=== PATIENT | female | born 2005 | race Caucasian/White ===

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

== ENCOUNTER 2024-03-11 15:48 | Emergency (ER) | payer BC, SELFPAY ==
[2024-03-11 15:55] VITALS: BP 125/79; PULSE 103; RESP 18; TEMP 37.7; O2SAT 100
[2024-03-11 16:13] LABS: EDUAAPPEAR Cloudy; EDUABILI Negative; EDUABLOOD 2+; EDUACOLOR1 Yellow; EDUAGLUCOSE Negative; EDUAKETONE Negative; EDUALEUKO 2+; EDUANITRATE Negative; EDUAPROTEIN 1+; EDUASPGRAVITY 1.025
--- NOTE | 2024-03-11 16:15 | ED.ABDPAIN ---
HPI - Abdominal Pain General Chief Complaint: Urogenital-Female Stated Complaint: UTI/Blood In Urine Time Seen by Provider: 03/11/24 16:16 Source: patient, RN notes reviewed and old records reviewed Mode of arrival: ambulatory Limitations: no limitations History of Present Illness HPI narrative: Patient presents with complaints of urinary frequency and burning. She reports this has been going on for 2 days, worsening. Reports hematuria today. She also complains of some left flank pain. She denies any fever, chills, sweats. Temp is slightly elevated on arrival. She has not been taking anything for her symptoms. She has had pyelonephritis in the past, states this does not feel as bad. She voices no other concerns or complaints at this time. Related Data Allergies Allergy/AdvReac Type Severity Reaction Status Date / Time honey Allergy Intermediate Hives / Verified 03/11/24 15:50 Red Face Review of Systems Review of Systems: All systems reviewed & are unremarkable except as noted in HPI and below Constitutional: Constitutional: Reports no additional constitutional complaints ENT: Reports system reviewed and no additional complaints, except as documented Cardiovascular: Cardiovascular: Reports no additional cardiovascular complaints Respiratory: Respiratory: Reports no additional respiratory complaints Gastrointestinal: Gastrointestinal: Reports no additional gastrointestinal complaints Genitourinary: Genitourinary: Reports dysuria, Reports flank pain (left), Reports urinary hesitancy and Reports urinary urgency [facility] Social History Social History Gender identity (if verbalized by the patient): Female Comments At the time of my signature, I reviewed and agree with the nursing past medical, surgical, social, and family history. There is no relevant family history pertinent to the patient complaint. Exam Const: General: cooperative, no acute distress, alert and awake Orientation/consciousness: oriented to person, oriented to place and oriented to time HENMT: Head: normal to inspection Resp: Effort & Inspection: normal respiratory effort and able to speak in complete sentences Auscultation: clear to auscultation bilaterally, no crackles, no rales, no rhonchi and no wheezes Cardio: Palpation: normal PMI Rate: regular rate Rhythm: regular rhythm Heart sounds: S1 normal heart sound present and S2 normal heart sound present : General: Yes bladder normal to palpation and Yes no CVA tenderness Neuro: General: oriented to person, oriented to place and oriented to time Cranial nerves: Yes CN's II-XII intact bilaterally Psych: Appearance: grossly normal Thought process: Normal thought process present Insight: Good insight present (Psych) Judgement: Good judgement present (Psych) Course Course Level of Care: Express Care Visit Vital Signs Vital signs: Vital Signs Temperature 99.9 F H 03/11/24 15:55 Pulse Rate 103 H 03/11/24 15:55 Respiratory Rate 18 03/11/24 15:55 Blood Pressure 125/79 03/11/24 15:55 Pulse Oximetry 100 03/11/24 15:55 Oxygen Delivery Room Air 03/11/24 15:55 Temperature 99.9 F H 03/11/24 15:55 Pulse Rate 103 H 03/11/24 15:55 Respiratory Rate 18 03/11/24 15:55 Blood Pressure 125/79 03/11/24 15:55 Pulse Oximetry 100 03/11/24 15:55 Oxygen Delivery Room Air 03/11/24 15:55 Reviewed MDM - Abdominal Pain MDM Narrative Medical decision making narrative: Patient nontoxic appearing, reassuringly normal exam. No CVA tenderness, no bladder tenderness. Discharge home with p.o. antibiotics, strict emergency department precautions. Follow with primary care provider. Medications as prescribed. Discharge instructions reviewed with patient, as well as provided in writing per nursing staff. The instructions also include specific and strict return/GO TO THE ER as well as f/u information. All rivkaio
== END 2024-03-11 16:30 | disposition home or self-care (01) ==
PROVIDERS: Emergency Provider Nurse Practitioner Family; PCP Pediatrics
DX: N30.00 Acute cystitis without hematuria (principal); B96.20 Unspecified Escherichia coli [E. coli] as the cause of diseases classified elsewhere
CPT/HCPCS: 81003; 87077; 87086; 87088; 87186; 99213; G0463

== ENCOUNTER 2024-06-17 08:11 | Emergency (ER) | payer BC, SELFPAY ==
[2024-06-17 08:22] VITALS: BP 117/78; PULSE 95; RESP 17; TEMP 37.7; O2SAT 99
--- NOTE | 2024-06-17 08:32 | ED.URI ---
HPI - URI/Sore Throat General Chief Complaint: Upper Respiratory Infection Stated Complaint: Headache/Bodyaches Time Seen by Provider: 06/17/24 08:32 Source: patient, RN notes reviewed and old records reviewed Mode of arrival: ambulatory Limitations: no limitations History of Present Illness HPI Narrative: Patient presents with complaints of headache, body aches, cough. She reports that headache was 1st symptom, began 1 week ago. She has been taking Tylenol and ibuprofen with no relief. She states that about 3 days ago body aches and sweats began. She reports occasional cough, states that this hurts her ribs and her head. She denies all injury and trauma. She denies any shortness of breath. She has not been running a fever, but has had antipyretic medications on board constantly for the past week. Says that last night she was awake all night due to coughing and body aches. Related Data Allergies Allergy/AdvReac Type Severity Reaction Status Date / Time honey Allergy Intermediate Hives / Verified 03/11/24 15:50 Red Face Review of Systems Review of Systems: All systems reviewed & are unremarkable except as noted in HPI and below Constitutional: Constitutional: Reports as per HPI, Reports no additional constitutional complaints, Reports body ache(s), Reports headache(s) and Reports night sweats ENT: Reports system reviewed and no additional complaints, except as documented Cardiovascular: Cardiovascular: Reports no additional cardiovascular complaints Respiratory: Respiratory: Reports no additional respiratory complaints and Reports pain with cough Gastrointestinal: Gastrointestinal: Reports no additional gastrointestinal complaints PMFSH Social History Social History Gender identity (if verbalized by the patient): Female Comments At the time of my signature, I reviewed and agree with the nursing past medical, surgical, social, and family history. There is no relevant family history pertinent to the patient complaint. Exam Const: General: cooperative, no acute distress, alert and awake Orientation/consciousness: oriented to person, oriented to place and oriented to time HENMT: Head: normal to inspection Ears: TM's normal bilaterally Mouth: Yes moist mucous membranes Throat: abnormal tonsil bilateral erythema and hypertrophy 2+ Resp: Effort & Inspection: normal respiratory effort and able to speak in complete sentences Auscultation: clear to auscultation bilaterally, no crackles, no rales, no rhonchi and no wheezes Cardio: Palpation: normal PMI Rate: regular rate Rhythm: regular rhythm Heart sounds: S1 normal heart sound present and S2 normal heart sound present Neuro: General: oriented to person, oriented to place and oriented to time Cranial nerves: Yes CN's II-XII intact bilaterally Psych: Appearance: grossly normal Thought process: Normal thought process present Insight: Good insight present (Psych) Judgement: Good judgement present (Psych) Course Course Level of Care: Express Care Visit Vital Signs Vital signs: Vital Signs Temperature 99.8 F H 06/17/24 08:22 Pulse Rate 95 06/17/24 08:22 Respiratory Rate 17 06/17/24 08:22 Blood Pressure 117/78 06/17/24 08:22 Pulse Oximetry 99 06/17/24 08:22 Oxygen Delivery Room Air 06/17/24 08:22 Temperature 99.8 F H 06/17/24 08:22 Pulse Rate 95 06/17/24 08:22 Respiratory Rate 17 06/17/24 08:22 Blood Pressure 117/78 06/17/24 08:22 Pulse Oximetry 99 06/17/24 08:22 Oxygen Delivery Room Air 06/17/24 08:22 Reviewed MDM - URI/Sore Throat MDM Narrative Medical decision making narrative: Patient with multiple constitutional complaints and a cough. Negative rapid strep. No x-ray capability at this facility today, but symptoms are consistent with community-acquired pneumonia. Will treat with azithromycin given severity and duration of symptoms and taking into account what is going on in the community. Patient is nontoxic appearing and stable for discharge home. Discharge instructions reviewed with patient, as well as provided in writing per nursing staff. The instructions also include specific and strict return/GO TO THE ER as well as f/u information. All questions have been answered, and the patient deny any further questions with discharge and discharge plan. Some parts of this dictation were generated by voice recognition software and may contain typographical and/or grammatical inaccuracies. Differential Diagnosis Differential diagnosis: Likely upper respiratory infection, otitis media, sinusitis and pharyngitis Lab Data Attestation: I reviewed the patient's lab results. Discharge Plan Discharge Clinical Impression: Pneumonia Qualifiers: Pneumonia type: due to unspecified organism Laterality: unspecified laterality Lung location: unspecified part of lung Qualified Code(s): J18.9 - Pneumonia, unspecified organism Patient Disposition: Home, Self-Care Condition: Stable Instructions: Antibiotic Form, Community Acquired Pneumonia (ED) Additional Instructions: Take medications as prescribed, follow with primary care provider. Emergency department for new or worse symptoms Patient Language: Lithuanian Prescriptions: New azithromycin 250 mg tablet See Rx Instructions .ROUTE .COMPLEX Qty: 6 0RF Rx Instructions: For 250 mg dose pack: take 500 mg today (day 1), then 250 mg for 4 days (days 2-5) albuterol sulfate [Ventolin HFA] 90 mcg/actuation HFA aerosol inhaler 2 puff inhalation QID PRN (Reason: shortness of breath or wheezing) Qty: 8.5 0RF Follow-up/Referrals: Darrel Johnson MD [Primary Care Provider] - 2 Weeks Stand Alone Forms: Work/School Release IP Time of Disposition: 08:53
[2024-06-17 08:50] LABS: EDSTREPNEGPOS1 Negative (Negative)
== END 2024-06-17 08:58 | disposition home or self-care (01) ==
PROVIDERS: Emergency Provider Nurse Practitioner Family; PCP Pediatrics
DX: J18.9 Pneumonia, unspecified organism (principal)
CPT/HCPCS: 87081; 87880; 99213; G0463

== ENCOUNTER 2024-10-10 16:40 | Emergency (ER) | payer BC, SELFPAY ==
[2024-10-10 16:48] VITALS: BP 129/75; PULSE 95; RESP 16; TEMP 37.3; O2SAT 100
--- NOTE | 2024-10-10 17:10 | ED.BACK ---
HPI - Back Pain/Injury General Chief Complaint: Back Pain/Injury Stated Complaint: Upper Back Pain Time Seen by Provider: 10/10/24 17:11 Source: patient Mode of arrival: ambulatory Limitations: no limitations History of Present Illness HPI Narrative: 19-year-old female presents with complaint of mid back pain for 2-3 days. Denies injury. Reports pain worse when hunching over, walking. If she sits straight up back feels fine. Taking ibuprofen to treat pain. No radiation of pain to upper or lower extremities. Ambulatory with steady gait. All systems reviewed and negative except as noted above. Related Data Allergies Allergy/AdvReac Type Severity Reaction Status Date / Time honey Allergy Intermediate Hives / Verified 10/10/24 16:45 Red Face Review of Systems Review of Systems: CONSTITUTIONAL: Denies fever, chills, or sweats. EYES: Denies visual changes, redness, or discharge. ENT: Denies rhinorrhea, congestion, sore throat, or otalgia. CARDIOVASCULAR: Denies chest pain, palpitations, or edema. RESPIRATORY: Denies cough or dyspnea. GASTROINTESTINAL: Denies abdominal pain, nausea, vomiting, or diarrhea. GENITOURINARY: Denies dysuria or hematuria. SKIN: Denies rash or itching. MUSCULOSKELETAL: Reports mid back pain. Denies joint pain, or myalgia. NEUROLOGIC: Denies headache, numbness, or weakness. PSYCHIATRIC: Denies anxiety or depression. All other systems reviewed are negative, except as documented in HPI. PMFSH Social History Social History Gender identity (if verbalized by the patient): Female Comments At time of signature, agree with nursing past medical, surgical, social and family history. There is no relevant family history pertinent to the presenting complaint. Exam Narrative: GENERAL: This is a well-nourished, well-developed patient, in no apparent distress. HEAD: normocephalic, atraumatic. EYES: PERRL. Sclera clear/white. Vision is grossly intact. EARS: External ears normal NOSE: External nose normal NECK: Neck supple, non-tender without lymphadenopathy, masses or thyromegaly. CARDIOVASCULAR: Regular rate and rhythm without murmurs, gallops, or rubs. RESPIRATORY: Clear to auscultation. Breath sounds equal bilaterally. No wheezes, rales, or rhonchi. SKIN: warm, Dry, intact with no suspicious lesions or rash, good texture and turgor. NEURO: awake, alert, and oriented to person, place and time. There were no obvious focal neurologic abnormalities. EXTREMITIES: No joint tenderness, effusion, or edema noted. No calf tenderness. Negative Homans sign bilaterally. BACK: tenderness to her thoracic spine at approximately T6, T7. No deformity. Patient also has right-sided muscular tenderness with spasm. Course Course Level of Care: Express Care Visit Vital Signs Vital signs: Vital Signs Temperature 37.3 C 10/10/24 16:48 Pulse Rate 95 10/10/24 16:48 Respiratory Rate 16 10/10/24 16:48 Blood Pressure 129/75 10/10/24 16:48 Pulse Oximetry 100 10/10/24 16:48 Oxygen Delivery Room Air 10/10/24 16:48 Temperature 37.3 C 10/10/24 16:48 Pulse Rate 95 10/10/24 16:48 Respiratory Rate 16 10/10/24 16:48 Blood Pressure 129/75 10/10/24 16:48 Pulse Oximetry 100 10/10/24 16:48 Oxygen Delivery Room Air 10/10/24 16:48 Reviewed MDM - Back Pain/Injury MDM Narrative Medical decision making narrative: x-ray of T-spine normal. Recommend continuing ibuprofen. Will treat with Medrol Dosepak, Robaxin. Please be advised this is a medical document. It is intended for [id number] communication. It is written in medical language and may contain unfamiliar abbreviations or verbiage. Medical documents are intended to carry relevant information, facts as evident, and the clinical opinion of the practitioner at the time of the encounter. This report may have been done utilizing a voice recognition system. Attempts have been made to correct errors. However, there may be uncorrected grammatical, spelling, and recognition errors present. The file time of this note does not necessarily represent the time of service. Differential Diagnosis Differential diagnosis: Likely thoracic back pain Imaging Data My impression: Agree with radiologist Radiologist's impression: 3 VIEWS THORACIC SPINE Ordering provider: Hafsa Bueno NP History: . tender T6-T7 . Comparison: None. FINDINGS: VERTEBRAL BODIES: Normal height and alignment. No visible fracture or subluxation. DISK SPACES: Normal. SOFT TISSUES: Normal. IMPRESSION: No acute osseous abnormality of the thoracic spine. Discharge Plan Discharge Clinical Impression: Strain of muscle and tendon of back wall of thorax, initial encounter Patient Disposition: Home, Self-Care Condition: Stable Instructions: Thoracic Back Strain (ED) Additional Instructions: the x-ray of your thoracic spine was normal. Take ibuprofen or Tylenol every 6-8 hours as needed for pain. Take medications as prescribed. Methocarbamol as a muscle relaxant may cause drowsiness. Do not drive while taking his medication. Alternate between ice and heat. Do stretching exercises as tolerated. Follow-up with your doctor if symptoms are not improving. Patient Language: Upper Sorbian Prescriptions: New methocarbamol 500 mg tablet 500 mg PO Q6H PRN (Reason: muscle pain/spasm) Qty: 30 0RF methylprednisolone [Medrol (Javid)] 4 mg tablets,dose pack See Rx Instructions PO .COMPLEX Qty: 21 0RF Rx Instructions: orally per package directions Follow-up/Referrals: Darrel Johnson MD [Primary Care Provider] - Time of Disposition: 17:52
== END 2024-10-10 17:55 | disposition home or self-care (01) ==
PROVIDERS: Emergency Provider Nurse Practitioner Family; PCP Pediatrics
DX: S29.012A Strain of muscle and tendon of back wall of thorax, initial encounter (principal); X58.XXXA Exposure to other specified factors, initial encounter
CPT/HCPCS: 72072; 99213; G0463